=== PATIENT | male | born 1990 ===

== ENCOUNTER 2017-09-19 19:21 | Emergency (ER) | payer OTHER ==
[~2017-09-19] VITALS: Ht 160 cm; Wt 93.0 kg
[2017-09-19] MEDS ORDERED: CYCL10 PO (21:13)
== END 2017-09-19 21:23 | disposition home or self-care (01) ==
LOC: ER 19:21
DX: M54.5 Low back pain (principal); N50.811 Right testicular pain
CPT/HCPCS: 76870; 81000; 96372; 99283; J1885